=== PATIENT | female | born 1955 | race Two or more races ===

== ENCOUNTER 2019-12-18 13:48 | Inpatient (IN) | payer OTHER ==
[~2019-12-18] VITALS: Ht 165.1 cm; Wt 61.7 kg
[2019-12-18] MEDS ORDERED: CLONAZEPAM0.5 MG (14:15)
--- NOTE | 2019-12-18 14:17 | NUR ---
PTE REFIERE DOLOR ABDOMINAL SE NANDINI S/V Y SE UBIAC EN AREA DE OBSERVACION
== END 2019-12-20 15:03 | disposition home or self-care (01) | DRG 342 ==
LOC: ER → SURG 20:36
PROVIDERS: ADMIT Surgery; ATTEND Surgery
PROC: BW21YZZ Computerized Tomography (CT Scan) of Abdomen and Pelvis using Other Contrast (ICD-10-PCS; 2019-12-18)
PROC: 0DTJ4ZZ Resection of Appendix, Percutaneous Endoscopic Approach (ICD-10-PCS; principal; 2019-12-19 09:30)
DX: K35.890 Other acute appendicitis without perforation or gangrene (principal); F31.89 Other bipolar disorder; E06.3 Autoimmune thyroiditis; Z20.828 Contact with and (suspected) exposure to other viral communicable diseases

== ENCOUNTER 2020-01-07 08:29 | Outpatient (CLI) | payer OTHER ==
[~2020-01-07 08:29] MED LIST: CLONAZEPAM0.5 MG
== END 2020-01-07 08:45 | disposition home or self-care (01) ==
LOC: NUCLEAR 08:29
PROVIDERS: ATTEND Internal Medicine Infectious Disease
DX: M86.8X4 Other osteomyelitis, hand (principal)
CPT/HCPCS: 78315; A9503

== ENCOUNTER 2020-01-14 08:54 | Outpatient (CLI) | payer OTHER | END 2020-01-14 09:09 | disposition home or self-care (01) | LOC: NUCLEAR 08:54 | PROVIDERS: ATTEND Internal Medicine Infectious Disease | DX: M86.8X4 Other osteomyelitis, hand (principal) | CPT/HCPCS: 78804; A9556 ==

== ENCOUNTER 2020-10-25 08:00 | Outpatient (CLI) | payer OTHER | END 2020-10-25 08:30 | disposition home or self-care (01) | LOC: PPH VACUNA 08:00 | DX: Z23 Encounter for immunization (principal) ==

== ENCOUNTER 2022-05-04 17:56 | Emergency (ER) | payer OTHER ==
[~2022-05-04] VITALS: Ht 165.1 cm; Wt 59.0 kg
[2022-05-04] MEDS ORDERED: DIVALPROEX SOD500 M1 (18:11)
== END 2022-05-04 20:48 | disposition home or self-care (01) ==
LOC: ER 17:56
DX: R42 Dizziness and giddiness (principal); Z88.8 Allergy status to other drugs, medicaments and biological substances; Z91.041 Radiographic dye allergy status; Z86.73 Personal history of transient ischemic attack (TIA), and cerebral infarction without residual deficits; G93.89 Other specified disorders of brain

== ENCOUNTER 2023-02-27 16:08 | Emergency (ER) | payer OTHER ==
[~2023-02-27] VITALS: Ht 162.6 cm; Wt 58.5 kg
[~2023-02-27 16:08] MED LIST changes: +DIVALPROEX SOD500 M1
== END 2023-02-27 19:25 | disposition home or self-care (01) ==
LOC: ER 16:08
DX: S82.042A Displaced comminuted fracture of left patella, initial encounter for closed fracture (principal); W18.39XA Other fall on same level, initial encounter; Y93.89 Activity, other specified; Y92.018 Other place in single-family (private) house as the place of occurrence of the external cause; Z91.041 Radiographic dye allergy status; Z88.2 Allergy status to sulfonamides
CPT/HCPCS: 73564; 96372; 99284; J1885

== ENCOUNTER 2023-03-03 09:37 | Inpatient (IN) | payer OTHER ==
[~2023-03-03] VITALS: Ht 154.9 cm; Wt 56.7 kg
[2023-03-03 11:03] LABS: URINE APPEARANCE Clear; URINE BILIRRUBIN Negative (NEGATIVE); URINE BLOOD Negative; URINE COLOR Yellow; URINE GLUCOSE Negative (NEGATIVE); URINE LEUKOCYTE Negative; URINE NITRATE Negative; URINE PROTEIN Negative (NEGATIVE); URINE UROBILINOGEN 0.2 E.U./dl
[2023-03-03 11:05] LABS: HEMATOCRIT 37.9 % (36.0-45.00); HEMOGLOBIN 13.1 g/dL (12.0-15.00); MEAN CELL VOLUME 91.1 fL (80.00-100.00); MEAN CORPUSCULAR HEMOGLOBIN 31.4 pg (27.00-32.0); MEAN CORPUSCULAR HGB CONC 34.4 g/dl (32.0-36.0); PLATELET COUNT 182 K/uL (150-450); RED BLOOD COUNT 4.16 M/uL (4.00-6.00); RED CELL DISTRIBUTION WIDTH 13.8 % (11.5-14.5)
[2023-03-03 11:09] LABS: URINE BACTERIA 35.2 uL (0.0-1933); URINE RBC 4.4 uL (0.0-20.8)
[2023-03-03 11:13] LABS: URINE EPITHELIAL CELLS 1.3 uL (0.0-38.8); URINE WBC 0.6 uL (0.0-23.2)
[2023-03-03 11:24] LABS: ALBUMIN 3.3 gm/dL (3.4-5.0); BILIRUBIN TOTAL 0.87 mg/dL (0.3-1.2); CALCIUM 8.8 mg/dL (8.5-10.1); CREATININE SERUM 0.56 mg/dL (0.55-1.02); GFR 107.65; GLOBULINA 3.2 G/DL (2.4-3.5); INR 0.98; PARTIAL THROMBOPLASTIN TIME 27.1 SECONDS (22.0-34.0); POTASSIUM 5.28 mEq/L (3.5-5.1); PROTHROMBIN TIME 10.3 SECONDS (9.0-11.5); TOTAL PROTEIN 6.5 gm/dL (6.4-8.2)
[2023-03-03 11:35] LABS: MAGNESIUM 1.9 mg/dL (1.8-2.4); PHOSPHOROUS 4.1 mg/dL (2.5-4.9)
[2023-03-04 09:30] LABS: BILIRUBIN TOTAL 0.85 mg/dL (0.3-1.2); CALCIUM 8.7 mg/dL (8.5-10.1); CREATININE SERUM 0.59 mg/dL (0.55-1.02); GFR 101.36; GLOBULINA 2.8 G/DL (2.4-3.5); POTASSIUM 5.68 mEq/L (3.5-5.1); TOTAL PROTEIN 5.8 gm/dL (6.4-8.2)
[2023-03-05 06:50] LABS: HEMATOCRIT 36.7 % (36.0-45.00); HEMOGLOBIN 12.7 g/dL (12.0-15.00); MEAN CELL VOLUME 92.1 fL (80.00-100.00); MEAN CORPUSCULAR HEMOGLOBIN 31.8 pg (27.00-32.0); MEAN CORPUSCULAR HGB CONC 34.6 g/dl (32.0-36.0); PLATELET COUNT 172 K/uL (150-450); RED BLOOD COUNT 3.98 M/uL (4.00-6.00)
[2023-03-05] MEDS ORDERED: CEFADROXIL500 MG PO (06:56)
[2023-03-05] MEDS ORDERED: PERCOCET 5-3251 EACH PO (06:56)
[2023-03-05] MEDS ORDERED: ELIQUIS2.5 MG PO (06:56)
== END 2023-03-05 13:06 | disposition home or self-care (01) | DRG 488 ==
LOC: ER 09:37 → SEC-K 12:06 → SURH 12:06 → SEC-K 13:26 → SURH 13:34
PROVIDERS: General Practice; Internal Medicine; ADMIT Orthopaedic Surgery; ATTEND Orthopaedic Surgery
PROC: 0QUF0KZ Supplement Left Patella with Nonautologous Tissue Substitute, Open Approach (ICD-10-PCS; 2023-03-04)
PROC: 0QSF04Z Reposition Left Patella with Internal Fixation Device, Open Approach (ICD-10-PCS; principal; 2023-03-04 12:30)
DX: S82.002A Unspecified fracture of left patella, initial encounter for closed fracture (principal); M25.062 Hemarthrosis, left knee; S80.02XA Contusion of left knee, initial encounter